=== PATIENT | male | born 1975 | race Caucasian/White ===

== ENCOUNTER 2016-11-09 16:24 | Emergency (ER) | payer OTHER ==
[~2016-11-09] VITALS: Ht 180.3 cm; Wt 59.1 kg
[~2016-11-09 16:24] MED LIST: ACET-1890 PO; HYDR-4003 PO; IBUP200C PO
[2016-11-09 16:28] VITALS: BP 109/72; PULSE 99; RESP 20; O2SAT 97
--- NOTE | 2016-11-09 18:30 | ED.REPORT ---
HPI-Back Pain 40 and Over Date of Service Nov 09, 2016 ED Provider: Rita Ross History of Present Illness: fall on curb about 2 hours ago. no primary care. back pain. no bowel or bladder 05/25, no medication. Nursing Notes Stated Complaint: BACK PAIN Chief Complaint: Back Pain or Injury Allergies: Coded Allergies: diphenhydramine (Verified Allergy, Intermediate, RASH, 11/09/16) Scheduled Ibuprofen (Ibuprofen) 200 Mg Capsule 200 MG PO PRN Scheduled PRN Acetaminophen (Tylenol) 325 Mg Tablet 325 MG PO PRN PRN PRN For Headache Hydrocodone-Acetaminophen 5-325 mg (Hydrocodone-Acetaminophen 5-325 mg) 1 Each Tablet 1-2 TABLET PO Q4H PRN PRN For Pain Hydrocodone-Acetaminophen 5-325 mg (Hydrocodone-Acetaminophen 5-325 mg) 1 Each Tablet 1 TABLET PO Q4H PRN PRN For Pain General Time Seen by MD: 18:27 Chief Complaint Back pain Hx Obtained From: Patient Sudden in Onset?: Yes Onset Occurred: 1 - 4 hours ago Symptom Duration: Since onset Severity: Current: Pain level 8 out of 10 Past Medical History Past Medical History Notes: ED visits 11/11/15, 11/15/15, and 11/21/15 for RUE pain. Next Gen indicates visits 11/28 and 11/30/15 as well history of drug and alcohol abuse per [facility] pateint states cancelled ortho appoitment that he had scheduled 01/08/2016, presents with right thigh abscess. seen 11/09/2016 for back pain after fall, states ibuprofen doesn't help Past Medical History Pt denies other medical problems Past Surgical History knee and hand. Surgery on hand done by Dr. Ruggiero Family History noncontributory Smoking History Current Every Day Smoker Social History Alcohol Use: Denies alcohol use Drug Use: Denies drug use Other Social History: Local resident Occupation living with friend, hx of etoh abuse, no work or school at this time 11/09/2016 Ambulatory Status Independent Review of Systems Basic Review of Systems Eyes: Vision NL, No discharge ENT: Hearing NL, No pain, No nasal congestion, No pharyngeal pain Hematologic: No bleeding, No bruising Endocrine: No cold intolerance, No heat intolerance, No weight gain, No weight loss Skin: No bruising, No rash, No itch Allergy / Immune: No allergy Psychiatric: Normal thought content Physical Exam Initial Vital Signs Vital Signs (First) Date Time Temp Pulse Resp B/P Pulse Ox O2 Delivery O2 Flow Rate FiO2 11/09/16 16:28 36.0 99 20 109/72 97 Room Air Initial VS: Reviewed, Vital signs normal Head / Eyes: Atraumatic, Normocephalic, PERRL ENT: Mucous membranes moist, Conjunctiva normal, No scleral icterus Neck: Supple, Non-tender, Full range of motion Lymphatic: No lymphadenopathy Extremities: Vascular intact, Neuro intact, No swelling, No tenderness Skin: Warm, Dry, No cyanosis Psychiatric: Mood/affect normal, Behavior normal, Normal thought content General/Constitutional: Awake, Alert, No acute distress Respiratory / Chest: Atraumatic, Breath sounds NL, Breath sounds = bilat, No respiratory distress Cardiovascular: Heart rate NL, Regular rhythm, Heart sounds NL, No gallop Abdomen: Atraumatic, Soft, Non-tender, McBurney's non-tender patient indicates fall on right side of back, minimal bruise ( mild erthyma) noted on right side, no swelling, skin intact Neurologic: Oriented X3, Speech NL, No motor deficits Lower Extremity / Pelvis / MS: Atraumatic, Inspection NL, Full range of motion , No swelling, Non-tender, No erythema, Gait NL Re-Eval/Medical Decision Med Decision/Clinical Course patient with long hx of ETOH abuse. Encouraged follow up with primary care Discharge & Departure Impression: Primary Impression: Low back pain Chronicity: acute Disposition: Home Patient Instructions: Acute Low Back Pain (ED) Additional Instructions: I am sorry you fell! Need to continue with movement. Please follow with primary care as needed. REturn with any concerns. Referrals: Murray Recinos MD (PCP) EDSupervising Provider for APC: Thomas Barrett DO copies to: Murray Recinos MD, Sue ARNP Nov 09, 2016 18:30
[2016-11-09 18:51] VITALS: BP 119/69; PULSE 71; RESP 19; O2SAT 99
== END 2016-11-09 18:53 | disposition home or self-care (01) ==
LOC: SED 16:24
DX: M54.5 Low back pain (principal); W01.198A Fall on same level from slipping, tripping and stumbling with subsequent striking against other object, initial encounter; Y93.89 Activity, other specified; Y92.89 Other specified places as the place of occurrence of the external cause; Y99.8 Other external cause status; F17.200 Nicotine dependence, unspecified, uncomplicated; Z98.890 Other specified postprocedural states

== ENCOUNTER 2017-03-15 20:40 | Emergency (ER) | payer OTHER ==
[~2017-03-15] VITALS: Ht 180.3 cm; Wt 61.4 kg
[2017-03-15 20:42] VITALS: BP 114/80; PULSE 81; RESP 18; O2SAT 98
== END 2017-03-15 22:44 | disposition left against medical advice (07) ==
LOC: SED 20:40
DX: M25.561 Pain in right knee (principal); Z53.21 Procedure and treatment not carried out due to patient leaving prior to being seen by health care provider

== ENCOUNTER 2017-04-23 11:24 | Emergency (ER) | payer OTHER ==
[~2017-04-23] VITALS: Ht 182.9 cm; Wt 61.3 kg
[2017-04-23 11:30] VITALS: BP 103/69; PULSE 82; RESP 16; O2SAT 99
--- NOTE | 2017-04-23 11:46 | ED.REPORT ---
HPI-Extremity Problem Lower Date of Service Apr 23, 2017 ED Provider: History of Present Illness: 41-year-old male here for right posterior upper leg pain and swelling. Pain onset yesterday am and has not changed since. He has been doing a lot of construction around his house but has no known injury to his leg. It is not erythematous and he has not been ill with fever. Pain increases with palpation of the area and walking. No known history of blood clots. He is otherwise healthy. Nursing Notes Stated Complaint: RIGHT LEG PAIN Chief Complaint: Extremity Trauma Nursing Notes Reviewed: Yes Allergies: Coded Allergies: diphenhydramine (Verified Allergy, Intermediate, RASH, 03/15/17) Scheduled Ibuprofen (Ibuprofen) 200 Mg Capsule 200 MG PO PRN Scheduled PRN Acetaminophen (Tylenol) 325 Mg Tablet 325 MG PO PRN PRN PRN For Headache Hydrocodone-Acetaminophen 5-325 mg (Hydrocodone-Acetaminophen 5-325 mg) 1 Each Tablet 1-2 TABLET PO Q4H PRN PRN For Pain Hydrocodone-Acetaminophen 5-325 mg (Hydrocodone-Acetaminophen 5-325 mg) 1 Each Tablet 1 TABLET PO Q4H PRN PRN For Pain General Time Seen by MD: 11:34 Chief Complaint Leg injury right posterior hamstring R Hx Obtained From: Patient Onset Occurred: Yesterday Symptom Duration: Constant Location: : Leg right Severity: Current: Severe Severity: Maximum: Severe Pertinent Negative: Pt denies other symptoms Exacerbated by: Range of motion Immunizations: All up to date Recent Healthcare: No recent doctor visit Similar Sx Previous: No Past Medical History Past Medical History Notes: ED visits 11/11/15, 11/15/15, and 11/21/15 for RUE pain. Next Gen indicates visits 11/28 and 11/30/15 as well history of drug and alcohol abuse per [facility] pateint states cancelled ortho appoitment that he had scheduled 01/08/2016, presents with right thigh abscess. seen 11/09/2016 for back pain after fall, states ibuprofen doesn't help Past Medical History Pt denies other medical problems smoker 3/day Past Surgical History knee and hand. Surgery on hand done by Dr. Ruggiero Family History noncontributory Smoking History Current Every Day Smoker Social History Alcohol Use: Denies alcohol use Drug Use: Denies drug use Other Social History: Local resident Occupation living with friend, hx of etoh abuse, no work or school at this time 11/09/2016 Ambulatory Status Independent Review of Systems Basic Review of Systems Eyes: Vision NL, No discharge ENT: Hearing NL, No pain, No nasal congestion, No pharyngeal pain Respiratory: No shortness of breath, No cough, No wheeze Cardiovascular: No chest pain, No dyspnea on exertion, No orthopnea, No parox noct dyspnea, No palpitations GI: No abdominal pain, No anorexia, No nausea, No vomiting Psychiatric: Normal thought content Constitutional: Denies: Chills, Fatigue, Fever Musculoskeletal: Reports: Extremity pain, Extremity swelling Complete sys rev & neg: except as marked. Physical Exam Initial Vital Signs Vital Signs (First) Date Time Temp Pulse Resp B/P Pulse Ox O2 Delivery O2 Flow Rate FiO2 04/23/17 11:30 36.6 82 16 103/69 99 Room Air Initial VS: Reviewed, Vital signs normal General/Constitutional: Well-developed, Well-nourished Head / Eyes: Atraumatic, Normocephalic, PERRL Respiratory: Breath sounds normal, Clear to auscultation, No respiratory distress Cardiovascular: Regular rate & rhythm, Heart sounds normal, Intact distal pulses Abdomen / GI: Soft, Non-tender, No guarding, No rebound, No distention Skin: Warm, Dry, No cyanosis Neurologic: Alert, Oriented, Nonfocal Psychiatric: Mood/affect normal, Behavior normal, Normal thought content posterior R hamstring with swelling and tenderness. venous engorgement noted with surrounding swelling. Affected area 8x5in approximately just proximal to posterior knee. . skin normal in color. area extremely tender. Interpretation & Diagnostics Interpretation & Diagnostics: US tech noted US normal Re-Eval/Medical Decision Med Decision/Clinical Course Discussed negative ultrasound with the patient. He will follow up if pain and swelling increases or if erythema develops. He will use ibuprofen and Tylenol as needed as well as ice for pain. pt was given crackers. He will follow-up with his PCP for further management Discharge & Departure Shift Change Sign-Out Imaging Studies: Imaging discussed Response to Therapy: Improved Impression: Primary Impression: Pain and swelling of right lower extremity Disposition: Home Patient Instructions: Contusions in Adults (ED) Additional Instructions: Apply ice to your leg at least 3 times a day. you may take 800 mg of ibuprofen 3 times a day or Aleve 2 tabs twice a day. you may also take 1 g of Tylenol every 8 hours for pain. Follow-up in emergency room pain and swelling increase or if redness develops. Otherwise follow-up your PCP for further care. Referrals: NOPCP (PCP) [facility] EDSupervising Provider for APC: Neo Downs MD, Linnea K ARNP Apr 23, 2017 11:46
--- NOTE | 2017-04-23 13:38 | DRSVH ---
PROCEDURE: US VEINOUS LEG DUPLEX UNILATERAL, RIGHT INDICATIONS: swelling RLE TECHNIQUE: Real-time imaging, as well as color and pulse Doppler interrogation, were performed of the lower extr emity deep veins from the inguinal ligament to the popliteal fossa. COMPARISON: None. FINDINGS: The deep veins are normally compressible, and free of intraluminal thrombus. Color and pu lse Doppler demonstrate normal phasic intraluminal flow. There is normal augmentation response to di stal compression maneuver. IMPRESSION: 1. No evidence of deep venous thrombosis in the right lower extremity. Dictated by: Winston Madison M.D. on 04/23/2017 at 13:36 Approved by: Winston Madison M.D. on 04/23/2017 at 13:36
== END 2017-04-23 12:58 | disposition home or self-care (01) ==
LOC: SED 11:24
DX: M79.604 Pain in right leg (principal); R22.41 Localized swelling, mass and lump, right lower limb; F17.200 Nicotine dependence, unspecified, uncomplicated; Z88.8 Allergy status to other drugs, medicaments and biological substances

== ENCOUNTER 2017-05-07 14:48 | Emergency (ER) | payer OTHER ==
[~2017-05-07] VITALS: Ht 180.3 cm; Wt 61.4 kg
[2017-05-07 15:08] VITALS: BP 113/85; PULSE 78; RESP 20; O2SAT 97
--- NOTE | 2017-05-07 16:23 | ED.REPORT ---
HPI-General Illness Date of Service May 07, 2017 ED Provider: Mylene Garvey History of Present Illness: 41-year-old male here for upper respiratory infection symptoms. Onset 4 days ago. Cough with green sputum. Minimal runny nose. No nausea vomiting diarrhea or stomach pain. He has very bad body aches and feels like he was hit by a truck. Denies fever. Nursing Notes Stated Complaint: SICK Chief Complaint: FLU/Cold Symptoms Nursing Notes Reviewed: Yes Allergies: Coded Allergies: diphenhydramine (Verified Allergy, Intermediate, RASH, 05/07/17) Scheduled Azithromycin (Zithromax (Z-Luciano)) 250 Mg Tablet 250 MG PO DIRECTED Take two tablets by mouth on day 1, then take one tablet daily on days 2 through 5. Ibuprofen (Ibuprofen) 200 Mg Capsule 200 MG PO PRN Scheduled PRN Acetaminophen (Tylenol) 325 Mg Tablet 325 MG PO PRN PRN PRN For Headache Hydrocodone-Acetaminophen 5-325 mg (Hydrocodone-Acetaminophen 5-325 mg) 1 Each Tablet 1-2 TABLET PO Q4H PRN PRN For Pain Hydrocodone-Acetaminophen 5-325 mg (Hydrocodone-Acetaminophen 5-325 mg) 1 Each Tablet 1 TABLET PO Q4H PRN PRN For Pain Ibuprofen (Ibuprofen) 600 Mg Tablet 600 MG PO QID PRN PRN For Pain General Time Seen by MD: 16:21 Chief Complaint Flu-like illness Hx Obtained From: Patient Arrived By: Walk-in Onset Occurred: 4 days ago Symptom Duration: 4 days Severity: Current: Moderate Severity: Maximum: Moderate Recent Healthcare: No recent doctor visit Similar Sx Previous: No Past Medical History Past Medical History Notes: ED visits 11/11/15, 11/15/15, and 11/21/15 for RUE pain. Next Gen indicates visits 11/28 and 11/30/15 as well history of drug and alcohol abuse per [facility] pateint states cancelled ortho appoitment that he had scheduled 01/08/2016, presents with right thigh abscess. seen 11/09/2016 for back pain after fall, states ibuprofen doesn't help Past Medical History Pt denies other medical problems smoker 3/day Past Surgical History knee and hand. Surgery on hand done by Dr. Ruggiero Family History noncontributory Smoking History Current Every Day Smoker Social History Alcohol Use: Denies alcohol use Drug Use: Denies drug use Other Social History: Local resident Occupation living with friend, hx of etoh abuse, no work or school at this time 11/09/2016 Ambulatory Status Independent Review of Systems Full Review of Systems Constitutional: Denies: Chills, Fatigue, Fever Eyes: Denies: Blurred bilateral, Eye pain bilateral Ears / Nose / Throat: Reports: Nasal congestion, Denies: Ear drainage bilateral, Earache bilateral, Throat pain Respiratory: Reports: Prod cough, green, Denies: Dyspnea on exertion Cardiovascular: Denies: Chest pain GI: Denies: Abdominal pain, Diarrhea, Nausea Complete sys rev & neg: except as marked. Physical Exam Vital Signs Vital Signs Date Time Temp Pulse Resp B/P Pulse Ox O2 Delivery O2 Flow Rate FiO2 05/07/17 17:18 36.7 78 20 113/72 98 Room Air 05/07/17 15:08 36.6 78 20 113/85 97 Room Air Initial VS: Reviewed, Vital signs normal General/Constitutional: Well-developed, Well-nourished Head / Eyes: Atraumatic, Normocephalic, PERRL Neck: Supple, Non-tender, Full range of motion Respiratory: Breath sounds normal, Clear to auscultation, No respiratory distress Cardiovascular: Regular rate & rhythm, Heart sounds normal, Intact distal pulses Abdomen / GI: Soft, Non-tender, No guarding, No rebound, No distention Skin: Warm, Dry, No cyanosis Neurologic: Alert, Oriented, Nonfocal Psychiatric: Mood/affect normal, Behavior normal, Normal thought content Head / Eyes: Normocephalic ENT: Airway patent, Mucous membranes moist, Pharynx NL, No peritonsillar abscess, No pooling of secretions, No trismus, Tympanic membs NL, Ext aud canal NL, Mastoid area NL, Nose exam NL, No sinus tenderness, No facial swelling, Gums /dentition NL Interpretation & Diagnostics Interpretation & Diagnostics: PROCEDURE: X-RAY CHEST, TWO VIEWS ([id number]) INDICATIONS: cough TECHNIQUE: 2 views of the chest were acquired. COMPARISON: [facility], , CHEST 2VW, 01/26/2013, 11:06. FINDINGS: Surgical changes and devices: None. Lungs and pleura: No pleural effusions or pneumothorax. Lungs are clear. Mediastinum: Mediastinal contours are normal. Heart size is normal. Bones and chest wall: No suspicious bony abnormalities. Soft tissues appear unremarkable. IMPRESSION: No acute process. Discharge & Departure Shift Change Sign-Out Imaging Studies: Imaging discussed Primary Impression: Upper respiratory infection URI type: unspecified viral URI Qualified Code: J06.9 - Acute upper respiratory infection, unspecified Disposition: Home Discharge Condition All VS Reviewed: Yes Condition: Stable Patient Instructions: Upper Respiratory Infection (ED) Additional Instructions: Take antibiotic as prescribed. Use ibuprofen for body aches and fever. Follow- up with your doctor in 1 week for recheck. Return to ER if fevers, worsening condition, vomiting or any other severe conditions. Drink lots fluids and rest. Referrals: NOPCP (PCP) [facility] EDSupervising Provider for APC: Muriel Linder MD, Linnea K ARNP May 07, 2017 16:23
--- NOTE | 2017-05-07 16:55 | DRSVH ---
PROCEDURE: X-RAY CHEST, TWO VIEWS ([id number]) INDICATIONS: cough TECHNIQUE: 2 views of the chest were acquired. COMPARISON: [facility], , CHEST 2VW, 01/26/2013, 11:06. FINDINGS: Surgical changes and devices: None. Lungs and pleura: No pleural effusions or pneumothorax. Lungs are clear. Mediastinum: Mediastinal contours are normal. Heart size is normal. Bones and chest wall: No suspicious bony abnormalities. Soft tissues appear unremarkable. IMPRESSION: No acute process. Dictated by: Wilner Kline M.D. on 05/07/2017 at 16:53 Approved by: Wilner Kline M.D. on 05/07/2017 at 16:54
[2017-05-07] MEDS ORDERED: IBUP-1827 PO (17:04)
[2017-05-07] MEDS ORDERED: AZIT250T4 PO (17:04)
[2017-05-07 17:18] VITALS: BP 113/72; PULSE 78; RESP 20; O2SAT 98
== END 2017-05-07 17:04 | disposition home or self-care (01) ==
LOC: SED 14:48
DX: J06.9 Acute upper respiratory infection, unspecified (principal); F17.200 Nicotine dependence, unspecified, uncomplicated; Z88.8 Allergy status to other drugs, medicaments and biological substances